=== PATIENT | female | born 1965 | race Caucasian/White ===

== ENCOUNTER 2019-11-09 14:52 | Emergency (ER) | payer OTHER ==
[~2019-11-09] VITALS: Ht 162.6 cm; Wt 87.1 kg
[~2019-11-09 14:52] MED LIST: ACLI400A3 PO; ALBU8.5H5 INH; ALPR0.5T6 PO; ALPR1TAB2 PO; AMLO-150 PO; ASPI-13 PO; ATOR20TA PO; BENA20TA54 PO; CHOL10002 PO; ESCI10TA PO; ESCI20TA10 PO; HYDR-3240 PO; HYDR12.547; HYDR25TA6 PO; LOVA40TA2 PO; METF-162; OXYC1TAB7 PO; POTA20PA25 PO; SELE100T PO; SULF-169 PO; TAMO10TA6 PO; ZOLP-413 PO; ZOLP10TA5 PO
--- NOTE | 2019-11-09 15:27 | NUR ---
FEELING CRAPPY FOR PAST COUPLE OF WEEKS. LIVES W/ DAUGHTER "AND WE'VE BEEN SELF QUARANTINING". DAUGHTER HAS A COUGH - CURRENTLY IN ED FOR EVAL. PT REPORTS PRODUCTIVE COUGH X 1 WEEK -THICK, CLEAR SPUTUM; FEVER 100-101F X 1 WEEK. +NAUSEA, DIARRHEA/LOOSE STOOL. LAST BM: TODAY. LAST ORAL INTAKE: [employer] TOOK NYQUIL 1200 TODAY. TYLENOL & IBUPROFEN 2 DAYS AGO.
[2019-11-09 15:36] VITALS: BP 137/90
--- NOTE | 2019-11-09 15:37 | NUR ---
REPORTS BEING VERY ANXIOUS CURRENTLY. HX OF ANXIETY. HASN'T TAKEN USUAL MEDS FOR PAST COUPLE OF MONTHS DUE TO INSURANCE SITUATION.
[2019-11-09] MEDS ORDERED: CARV-39 PO (15:40)
[2019-11-09] MEDS ORDERED: KEPPRA (15:40)
[2019-11-09] MEDS ORDERED: DILANTIN (15:40)
[2019-11-09] MEDS ORDERED: SEROQUEL (15:41)
--- NOTE | 2019-11-09 15:41 | NUR ---
PT POOR HISTORIAN RE: HER MEDICATIONS
[2019-11-09 16:26] LABS: BASOPHILS # (AUTO) 0.03 x10^3/uL (0-0.1); BASOPHILS % (AUTO) 0 % (0-1); EOSINOPHILS # (AUTO) 0.12 x10^3/uL (0-0.4); EOSINOPHILS % (AUTO) 2 % (1-7); LYMPHOCYTES # (AUTO) 1.64 x10^3/uL (1-3.4); LYMPHOCYTES % (AUTO) 21 % (22-44); MD NO; MEAN CORPUSCULAR HEMOGLOBIN 32.6 pg (27.0-34.8); MEAN CORPUSCULAR HGB CONC 32.9 g/dL (32.4-35.8); MEAN CORPUSCULAR VOLUME 99.1 fL (80-100); MEAN PLATELET VOLUME 8.5 fL (7.4-10.4); MONOCYTES # (AUTO) 0.48 x10^3/uL (0.2-0.8); MONOCYTES % (AUTO) 6 % (2-9); NEUTROPHILS # (AUTO) 5.57 x10^3/uL (1.8-6.8); NEUTROPHILS % (AUTO) 71 % (42-75); PLATELET COUNT 239 x10^3/uL (130-400); RED BLOOD COUNT 4.58 x10^6/uL (3.82-5.3); RED CELL DISTRIBUTION WIDTH 13.7 % (9.6-15.2)
[2019-11-09 16:36] LABS: ALANINE AMINOTRANSFERASE 40 U/L (12-78); ALBUMIN 3.7 g/dL (3.4-5.0); ANION GAP 7 mmol/L (5-15); CALCIUM 9.7 mg/dL (8.5-10.1); CHLORIDE 112 mmol/L (98-107); CREATININE 0.72 mg/dL (0.55-1.02)
[2019-11-09 16:41] LABS: ALKALINE PHOSPHATASE 129 U/L (45-117); BILIRUBIN,TOTAL 0.8 mg/dL (0.2-1.0); TOTAL PROTEIN 7.3 g/dL (6.4-8.2); TROPONIN I < 0.015 ng/mL (0.000-0.045)
--- NOTE | 2019-11-09 16:58 | NUR ---
PT REPORT TO MAINOR MG RN. PT CARE TRANSFERRED.
--- NOTE | 2019-11-09 17:14 | NUR ---
BREAK RN: DISCUSSED THAT SHE WILL RECEIVE A CALL REGARDING COVID TEST, SELF ISOLATE UNTIL, Patient/Caregiver given discharge instructions and they have confirmed that they understand the instructions. Patient ambulatory with steady gait.
== END 2019-11-09 17:16 | disposition home or self-care (01) ==
LOC: ED 16:34
DX: B34.9 Viral infection, unspecified (principal); R50.9 Fever, unspecified; R05 Cough; R06.02 Shortness of breath; Z20.828 Contact with and (suspected) exposure to other viral communicable diseases; I10 Essential (primary) hypertension; E78.00 Pure hypercholesterolemia, unspecified; J44.9 Chronic obstructive pulmonary disease, unspecified; G40.909 Epilepsy, unspecified, not intractable, without status epilepticus; Z85.3 Personal history of malignant neoplasm of breast
CPT/HCPCS: 36415; 71045; 80053; 84484; 85025; 87635; 93005; 99283